=== PATIENT | female | born 1975 | race African-American/Black ===

== ENCOUNTER → 2020-03-13 | Emergency (ER) | payer MEDICAID ==
[~2020-03-13] VITALS: Ht 170.2 cm; Wt 88.0 kg
[~2020-03-13] MED LIST: CIPROFLOXACIN HCL 500 MG TAB PO ONE; ETOMIDATE (2MG/ML) 20ML VIAL IV ONE; HYDROmorphone HCL 2 MG/ML VL IV ONE; LITH300T5 GT; LORazepam 0.5 MG TAB PO ONE; OLANZapine 5 MG TAB ONE; OLANZapine 5 MG TAB PO ONE; OLANZapine 5 MG TAB PO SCH; POTASSIUM EFFERVESENT TAB 25 MEQ ONE; POTASSIUM EFFERVESENT TAB 25 MEQ PO ONE; QUET50TA PO; QUEtiapine FUMARATE 25 MG TAB PO ONE; RISP1TAB60 PO; SERTRALINE HCL 50 MG TAB PO ONE; cefTRIAXone 1GM/50ML D5W 50 ML IV ONE
[2020-03-13 09:28] LABS: Basophils # (auto) 0.1 10 ^3/uL (0-0.2); Hematocrit 45.4 % (36.0-46.0); Lymphocytes # (auto) 2.7 10 ^3/uL (0.4-5.4); Neutrophils # (auto) 10.6 10 ^3/uL (1.6-8.6)
[2020-03-13 09:31] LABS: Basophils % (auto) 0.8 % (0.0-2.0); Eosinophils # (auto) 0 10 ^3/uL (0-0.8); Eosinophils % (auto) 0.3 % (0.0-7.0); Hemoglobin 14.2 g/dL (12.2-16.2); Lymphocytes % (auto) 19.4 % (10.0-50.0); Mean Corpuscular Hgb Conc. 31.2 g/dL (32.0-36.0); Mean Corpuscular Volume 83.3 fL (80.0-100.0); Monocytes # (auto) 0.6 10 ^3/uL (0-1.3); Neutrophils % (auto) 75.5 % (37.0-80.0); Nucleated Red Blood Cells % 0.1 %; Platelet Count (auto) 408 10^3/uL (140-450); Red Blood Cells 5.46 10^6/uL (4.0-5.20); Red Cell Distribution Width 18.9 % (11.8-14.3)
[2020-03-13 09:47] LABS: Urine Bacteria NONE SEEN /hpf (None Seen); Urine Blood Negative /uL (Negative); Urine Mucus FEW (None Seen); Urine WBC 13 /hpf (0 - 5)
[2020-03-13 09:50] LABS: Albumin 3.8 g/dL (3.4-5.0); Potassium 3.3 mmol/L (3.5-5.1)
[2020-03-13 09:51] LABS: Salicylate < 1.7 mg/dL (2.8-20.0)
[2020-03-13 09:54] LABS: BUN/Creatinine Ratio 10.4; Bilirubin, Total 0.2 mg/dL (0.2-1.0); Total Protein 8.9 g/dL (6.4-8.2)
[2020-03-13 09:59] LABS: Amphetamine Screen, Urine NEGATIVE (NEGATIVE); Barbiturate Scree,Urine NEGATIVE (NEGATIVE); Benzodiazephine Screen, Urine NEGATIVE (NEGATIVE); Cannabinoid Screen, Urine NEGATIVE (NEGATIVE); Cocaine Screen, Urine NEGATIVE (NEGATIVE); Opiate Scree,Urine NEGATIVE (NEGATIVE); Phencyclidine Screen, Urine NEGATIVE (NEGATIVE)
[2020-03-13 10:00] LABS: Acetaminophen < 2.0 ug/mL (10-30)
[2020-03-18 19:51] VITALS: BP 114/62
== END | disposition home or self-care (01) ==
LOC: EDUNIT# 08:12 → EDBD 08:29 → ER 08:29
DX: S43.004A Unspecified dislocation of right shoulder joint, initial encounter (principal); N39.0 Urinary tract infection, site not specified; F41.9 Anxiety disorder, unspecified; E87.6 Hypokalemia; X58.XXXA Exposure to other specified factors, initial encounter; Y93.89 Activity, other specified; Y92.89 Other specified places as the place of occurrence of the external cause; Y99.8 Other external cause status
CPT/HCPCS: 23650; 36415; 73030; 80053; 80307; 80329; 81001; 81025; 85025; 96365; 96375; 99152; 99285; J0696; J1170; 96374

== ENCOUNTER 2021-11-18 17:08 | Emergency (ER) | payer MEDICAID ==
[~2021-11-18] VITALS: Ht 172.7 cm; Wt 65.8 kg
[~2021-11-18 17:08] MED LIST changes: -CIPROFLOXACIN HCL 500 MG TAB PO ONE; -ETOMIDATE (2MG/ML) 20ML VIAL IV ONE; -HYDROmorphone HCL 2 MG/ML VL IV ONE; -LORazepam 0.5 MG TAB PO ONE; -OLANZapine 5 MG TAB ONE; -OLANZapine 5 MG TAB PO ONE; -OLANZapine 5 MG TAB PO SCH; -POTASSIUM EFFERVESENT TAB 25 MEQ ONE; -POTASSIUM EFFERVESENT TAB 25 MEQ PO ONE; -QUEtiapine FUMARATE 25 MG TAB PO ONE; +RISP1TAB33 PO; -RISP1TAB60 PO; -SERTRALINE HCL 50 MG TAB PO ONE; -cefTRIAXone 1GM/50ML D5W 50 ML IV ONE
[2021-11-18 17:09] VITALS: BP 171/107
[2021-11-18 18:13] LABS: Basophils # (auto) 0.1 10 ^3/uL (0-0.2); Basophils % (auto) 0.6 % (0.0-2.0); Eosinophils # (auto) 0.1 10 ^3/uL (0-0.8); Eosinophils % (auto) 0.6 % (0.0-7.0); Hematocrit 47.2 % (36.0-46.0); Hemoglobin 15.8 g/dL (12.2-16.2); Lymphocytes # (auto) 3.3 10 ^3/uL (0.4-5.4); Lymphocytes % (auto) 21.6 % (10.0-50.0); Mean Corpuscular Hemoglobin 30.9 pg (28.0-32.0); Mean Corpuscular Hgb Conc. 33.5 g/dL (32.0-36.0); Mean Corpuscular Volume 92.4 fL (80.0-100.0); Monocytes # (auto) 0.9 10 ^3/uL (0-1.3); Monocytes % (auto) 5.9 % (0.0-12.0); Neutrophils # (auto) 10.9 10 ^3/uL (1.6-8.6); Neutrophils % (auto) 71.3 % (37.0-80.0); Nucleated Red Blood Cells % 0.1 %; Red Blood Cells 5.11 10^6/uL (4.0-5.20); Red Cell Distribution Width 13.4 % (11.8-14.3); White Blood Cell 15.2 10^3/uL (4.4-10.8)
[2021-11-18 18:29] LABS: Albumin 3.8 g/dL (3.4-5.0); Calcium 9.9 mg/dL (8.5-10.1); Potassium 3.9 mmol/L (3.5-5.1)
[2021-11-18 18:33] LABS: BUN/Creatinine Ratio 11.2; Bilirubin, Total 0.3 mg/dL (0.2-1.0)
[2021-11-18] MEDS ORDERED: ONDA-144 PO (19:54)
== END 2021-11-18 22:33 | disposition home or self-care (01) ==
LOC: ER 17:08
DX: D25.9 Leiomyoma of uterus, unspecified (principal); Z90.49 Acquired absence of other specified parts of digestive tract; Z79.899 Other long term (current) drug therapy
CPT/HCPCS: 36415; 74176; 80053; 82150; 83690; 85025; 93005

== ENCOUNTER 2022-12-17 05:18 | Emergency (ER) | payer MEDICAID ==
[~2022-12-17] VITALS: Ht 167.6 cm; Wt 70.9 kg
[~2022-12-17 05:18] MED LIST changes: +ONDA-144 PO
[2022-12-17] MEDS ORDERED: ETOMIDATE (2MG/ML) 20ML VIAL IV ONE (07:00)
[2022-12-17] MEDS ORDERED: TRAM-297 PO (07:13)
[2022-12-17 09:56] VITALS: BP 153/76
== END 2022-12-17 10:27 | disposition home or self-care (01) ==
LOC: ER 05:18
DX: M24.411 Recurrent dislocation, right shoulder (principal); E11.9 Type 2 diabetes mellitus without complications; E78.5 Hyperlipidemia, unspecified; F20.9 Schizophrenia, unspecified; Z79.899 Other long term (current) drug therapy; Z90.49 Acquired absence of other specified parts of digestive tract
CPT/HCPCS: 23650; 73020; 73030; 96374; 99152

== ENCOUNTER 2023-05-27 17:38 | Emergency (ER) | payer MEDICAID ==
[~2023-05-27] VITALS: Ht 167.6 cm; Wt 91.0 kg
[~2023-05-27 17:38] MED LIST changes: +TRAM-297 PO
[2023-05-27 18:49] VITALS: PULSE 108; RESP 20; O2SAT 96
[2023-05-27 20:00] VITALS: PULSE 100; RESP 95; TEMP 98.3; O2SAT 92
[2023-05-27] MEDS: PROPOFOL 10 MG/ML 20 ML IV ONE ×2 (21:21→21:23)
[2023-05-27] MEDS ORDERED: HYDR-4902 PO (21:48)
[2023-05-27 22:37] VITALS: BP 153/88; PULSE 103; RESP 19; O2SAT 98
== END 2023-05-27 22:39 | disposition home or self-care (01) ==
LOC: ER 17:38
DX: M24.411 Recurrent dislocation, right shoulder (principal); E11.9 Type 2 diabetes mellitus without complications; E78.5 Hyperlipidemia, unspecified; F20.9 Schizophrenia, unspecified; Z79.899 Other long term (current) drug therapy; Z90.49 Acquired absence of other specified parts of digestive tract
CPT/HCPCS: 23650; 73020; 73030; 99152; 99285; J2704

== ENCOUNTER 2023-08-06 08:33 | Emergency (ER) | payer MEDICAID ==
[~2023-08-06] VITALS: Ht 167.6 cm; Wt 90.8 kg
[~2023-08-06 08:33] MED LIST changes: +HYDR-4902 PO
[2023-08-06 10:30] VITALS: O2SAT 98
[2023-08-06] MEDS ORDERED: ETOMIDATE (2MG/ML) 20ML VIAL IV ONE (10:30)
[2023-08-06 11:00] VITALS: TEMP 98
[2023-08-06 11:01] VITALS: BP 197/103
[2023-08-06 11:16] VITALS: PULSE 95; RESP 18; O2SAT 98
== END 2023-08-06 12:16 | disposition home or self-care (01) ==
LOC: ER 08:33
DX: S43.014A Anterior dislocation of right humerus, initial encounter (principal); E11.9 Type 2 diabetes mellitus without complications; E78.5 Hyperlipidemia, unspecified; F20.9 Schizophrenia, unspecified; Z90.49 Acquired absence of other specified parts of digestive tract; Z79.1 Long term (current) use of non-steroidal anti-inflammatories (NSAID); Z79.899 Other long term (current) drug therapy; X58.XXXA Exposure to other specified factors, initial encounter; Y93.89 Activity, other specified; Y92.89 Other specified places as the place of occurrence of the external cause; Y99.8 Other external cause status
CPT/HCPCS: 23650; 73030; 99152

== ENCOUNTER 2025-08-23 11:29 | Emergency (ER) | payer MEDICAID ==
[~2025-08-23] VITALS: Ht 160 cm; Wt 91.2 kg
--- NOTE | 2025-08-23 11:53 | ED.PDOC ---
HPI (NEURO) HPI Comments 50-year-old female who presented ED for complaint of headache. Patient presents with caregiver who states that patient has been having headache since yesterday with associated dizziness for the past two days. Patient has a history of hypertension but states has not been taking medication with a past one month due to feeling groggy from the medication. Patient otherwise has a history of schizophrenia and currently denies any suicidal or homicidal ideations. Patient in the ED has not noted blood pressure of 214/113 with otherwise stable vitals. Patient in the ED otherwise alert oriented and no noted changes in gait patient or speech are noted. Patient otherwise denies any other symptoms at this time. Chief Complaint: Headache Time Seen by MD: 11:51 Primary Care Provider: WESLEY Diaz Notes: Medications, Allergies Information Source: Patient, Friend Mode of Arrival: Ambulatory Brought in by: Caregiver Severity: Moderate Dizziness/Weakness Severity: Does not affect activitie Headache Severity: Moderate Timing: Days Past Medical History PAST MEDICAL HISTORY: DM, High Lipids, Schizophrenia Surgical History: Cholecystectomy COLLECTIONS MANAGER History: No Pertinent COLLECTIONS MANAGER History Family History Family History: Unknown Social History Smoker: Non-Smoker Alcohol: Occasionally Drugs: Denies Drug Use Lives In: Home Constitutional: denies: chills, diaphoresis, fatigue, fever, malaise, sweats, weakness, others EENTM: denies: blurred vision, double vision, ear bleeding, ear discharge, ear drainage, ear pain, ear ringing, eye pain, eye redness, hearing loss, mouth pain, mouth swelling, nasal discharge, nose bleeding, nose congestion, nose pain, photophobia, tearing, throat pain, throat swelling, voice changes, others Respiratory: denies: cough, hemoptysis, orthopnea, SOB at rest, shortness of breath, SOB with excertion, stridor, wheezing, others Cardiovascular: denies: chest pain, dizzy spells, diaphoresis, Dyspnea on exertion, edema, irregular heart beat, left arm pain, lightheadedness, palpitations, PND, syncope, others Gastrointestinal: denies: abdomen distended, abdominal pain, blood streaked bowels, constipated, diarrhea, dysphagia, difficulty swallowing, hematemesis, melena, nausea, poor appetite, poor fluid intake, rectal bleeding, rectal pain, vomiting, others Genitourinary: denies: abnormal vagina bleeding, burning, dyspareunia, dysuria, flank pain, frequency, hematuria, incontinence, pain, , vagina discharge, urgency, others Neurological: reports: dizziness, headache; denies: fainting, left sided numbness, left sided weakness, numbness, paresthesia, pre-existing deficit, right sided numbness, right sided weakness, seizure, speech problems, tingling, tremors, weakness, others Musculoskeletal: denies: back pain, gout, joint pain, joint swelling, muscle pain, muscle stiffness, neck pain, others Integumetry: denies: bruises, change in color, change in hair/nails, dryness, laceration, lesions, lumps, rash, wounds, others Allergic/Immunocompromised: denies: Difficulty Healing, Frequent Infections, Hives, Itching, others Hematologic/Lymphatic: denies: anemia, blood clots, easy bleeding, easy bruising, swollen glands, others Endocrine: denies: excessive hunger, excessive sweating, excessive thirst, excessive urination, flushing, intolerance to cold, intolerance to heat, unexplained weight gain, unexplained weight loss, others Psychiatric: denies: anxiety, bipolar disorder, depression, hopeless, panic disorder, schizophrenia, sleepless, suicidal, others All Other Systems: Reviewed and Negative Physical Exam General Appearance: Moderate Distress HEENT: Normal ENT Inspection, Pharynx Normal, TMs Normal Neck: Full Range of Motion, Non-Tender, Normal, Normal Inspection Respiratory: Chest Non-Tender, Lungs Clear, No Accessory Muscle Use, No Respiratory Distress, Normal Breath Sounds Cardiovascular: No Edema, No JVD, No Murmur, No Gallop, Normal Peripheral Pulses, Regular Rate/Rhythm Breast Exam: Deferred Gastrointestinal: No Organomegaly, Non Tender, No Pulsatile Mass, Normal Bowel Sounds, Soft Genitalia: Deferred Pelvic: Deferred Rectal: Deferred Extremities: No calf tenderness, Normal capillary refill, Normal inspection, Normal range of motion, Non-tender, No pedal edema Musculoskeletal : Apperance: Normal Neurologic: Alert, account solutions analyst II-XII nml as Tested, No Motor Deficits, Normal Affect, Normal Mood, No Sensory Deficits Cerebellar Function: Normal Reflexes: Normal Skin: Dry, Normal Color, Warm Peripheral Pulses: 3+ Radial (R), 3+ Radial (L) Lymphatic: No Adenopathy Was a procedure done? Was a procedure done?: No Differential Diagnosis (SZ) Seizure: Psychogenic Seizure, Closed Head Injury, CVA/TIA General Weakness: Dehydration, Electrolyte imbalance Headache: Migraine, Closed Head Injury, Post-Traumatic, Sinusitis, Other (Uncontrolled hypertension, hypertensive urgency) X-Ray, Labs, Meds, VS Vital Signs Date Time Temp Pulse Resp B/P (MAP) Pulse Ox O2 Delivery O2 Flow Rate FiO2 08/23/25 12:34 116 18 189/99 (129) 98 08/23/25 11:56 114 16 98 Room Air* 0 21 08/23/25 11:56 98.5 114 18 205/99 (134) 98 98.5 08/23/25 11:45 188/99 08/23/25 11:31 97.4 113 17 214/113 98 97.4 Lab Test 08/23/25 12:48 Range/Units White Blood Count 12.3 H 4.4-10.8 10^3/uL Red Blood Count 4.78 4.0-5.20 10^6/uL Hemoglobin 14.7 12.2-16.2 g/dL Hematocrit 44.3 36.0-46.0 % Mean Corpuscular Volume 92.6 80.0-100.0 fL Mean Corpuscular Hemoglobin 30.7 28.0-32.0 pg Mean Corpuscular Hemoglobin Concent 33.2 32.0-36.0 g/dL Red Cell Distribution Width 13.1 11.8-14.3 % Platelet Count 376 140-450 10^3/uL Mean Platelet Volume 8.4 6.9-10.8 fL Neutrophils (%) (Auto) 83.3 H 37.0-80.0 % Lymphocytes (%) (Auto) 13.0 10.0-50.0 % Monocytes (%) (Auto) 3.1 0.0-12.0 % Eosinophils (%) (Auto) 0.1 0.0-7.0 % Basophils (%) (Auto) 0.5 0.0-2.0 % Neutrophils # (Auto) 10.2 H 1.6-8.6 10 ^3/uL Lymphocytes # (Auto) 1.6 0.4-5.4 10 ^3/uL Monocytes # (Auto) 0.4 0-1.3 10 ^3/uL Eosinophils # (Auto) 0 0-0.8 10 ^3/uL Basophils # (Auto) 0.1 0-0.2 10 ^3/uL Nucleated Red Blood Cells 0.0 % Sodium Level Pending Potassium Level Pending Chloride Level Pending Carbon Dioxide Level Pending Anion Gap Pending Blood Urea Nitrogen Pending Creatinine Pending Glomerular Filtration Rate Calc Pending BUN/Creatinine Ratio Pending Serum Glucose Pending Calcium Level Pending Current Medications Medications (Trade) Dose Ordered Sig/Helio Route Start Time Stop Time Status Last Admin Clonidine HCl (Catapres Tablet) 0.2 mg ONCE ONCE PO 08/23/25 11:45 08/23/25 11:46 DC 08/23/25 11:45 PROCEDURE(s): HWOCT - HEAD WITHOUT CONTRAST IMPRESSION: No acute intracranial abnormality. Severe mucosal disease in the right frontal and right maxillary sinuses and anterior right ethmoid air cells. Correlate clinically for acute sinusitis. Patient alert. Complaining of headache. Blood pressure elevated. Answering questions pain CT of the head does not reveal any acute process sinusitis. WBC elevated. Blood pressure elevated. Possible urinary tract infection. She does not take her medication. Was given clonidine. Denies suicidal or homicidal ideation. Was given prescription of Macrobid antibiotic. Explained to the family. Was told to follow up with her primary care physician. Was told to come back if there is any problem. Time of 1ST Reevaluation: 12:20 Reevaluation 1ST: Unchanged Patient Education/Counseling: Diagnosis, Treatment Family Education/Counseling: No Family Present Departure 1 Departure Time of Disposition: 13:10 Impression: Primary Impression: Hypertensive emergency Disposition: 01 HOME / SELF CARE / HOMELESS Condition: Good e-Prescriptions Nitrofurantoin Monohydrate Mac (Macrobid) 100 Mg Cap 100 MG PO BID for 7 Days, #14 CAP Prov: PARKER KAISER MD 08/23/25 Discharged With: Self Critical Care Note Critical Care Time?: No Stability Stability form required: No Heart Score Heart Score: Heart Score Response (Comments) Value History N/A 0 EKG N/A 0 Age N/A 0 Risk Factors N/A 0 Troponin N/A 0 Total 0 I personally scribed for PARKER KAISER MD ([email or web address]) on 08/23/25 at 11:53. Electronically submitted by Vanna Saunders ([email or web address]). I personally scribed for PARKER KAISER MD ([email or web address]) on 08/23/25 at 12:54. Electronically submitted by [facility] Saunders ([facility] PARKER KAISER MD Aug 23, 2025 11:53
[2025-08-23 11:56] VITALS: PULSE 114; RESP 16; O2SAT 98
[2025-08-23] MEDS: IOHEXOL 350 MG/ML 100ML IJ ONE (12:41)
--- NOTE | 2025-08-23 12:43 | DVH ---
COMPUTERIZED TOMOGRAPHY OF THE HEAD WITHOUT CONTRAST REASON FOR STUDY: headache COMPARISON: None TECHNIQUE: Helical tomographic scans were obtained through the brain. 2-D coronal and sagittal refor matted images are provided. Radiation optimization: All CT scans at this facility use at least one of these dose optimization techniques: Automated exposure control mA and/or kV adjustment per patient s ize (includes targeted exams where dose is matched to clinical indication) or iterative reconstructio n. RADIATION DOSE: CTDI: 56.26 mGy DLP: 996.21 mGy-cm FINDINGS: No suspicious intracranial hyperdensity to suggest acute blood. There is no mass effect n or midline shift. There is no hydrocephalus. The suprasellar cistern is intact. The calvarium is inta ct. There is complete opacification of the right frontal and right maxillary sinuses. There is also o pacification of the anterior right ethmoid air cells. There is mild mucosal thickening in the left ma xillary sinus. The visualized mastoid air cells are clear. IMPRESSION: No acute intracranial abnormality. Severe mucosal disease in the right frontal and right maxillary sinuses and anterior right ethmoid ai r cells. Correlate clinically for acute sinusitis.
[2025-08-23 13:06] LABS: Hematocrit 44.3 % (36.0-46.0); Hemoglobin 14.7 g/dL (12.2-16.2); Mean Corpuscular Hemoglobin 30.7 pg (28.0-32.0); Mean Corpuscular Volume 92.6 fL (80.0-100.0); Nucleated Red Blood Cells % 0.0 %
[2025-08-23] MEDS ORDERED: NITR-87 PO (13:11)
[2025-08-23 13:13] LABS: Chloride 102 mmol/L (98-107); Potassium 3.8 mmol/L (3.5-5.1); Sodium 138 mmol/L (136-145)
[2025-08-23 13:14] LABS: Anion Gap 11 (5-15); Calcium 9.8 mg/dL (8.7-10.4); Carbon Dioxide 25 mmol/L (20-31)
[2025-08-23 13:19] LABS: BUN/Creatinine Ratio 6.0 (10.0-20.0)
[2025-08-23 13:23] LABS: Blood Urea Nitrogen 7 mg/dL (9-23); Glucose 303 mg/dL (74-106)
[2025-08-23 13:41] VITALS: TEMP 98.7
[2025-08-23 14:09] VITALS: BP 161/97; PULSE 110; RESP 18; O2SAT 97
== END 2025-08-23 16:01 | disposition left against medical advice (07) ==
LOC: ER 11:29
DX: I16.1 Hypertensive emergency (principal); F10.90 Alcohol use, unspecified, uncomplicated; E11.9 Type 2 diabetes mellitus without complications; E78.5 Hyperlipidemia, unspecified; I10 Essential (primary) hypertension; F20.9 Schizophrenia, unspecified; Z90.49 Acquired absence of other specified parts of digestive tract; Y90.9 Presence of alcohol in blood, level not specified
CPT/HCPCS: 36415; 70450; 80048; 85025; 99284; Q9967